=== PATIENT | male | born 1990 | race Caucasian/White ===

== ENCOUNTER 2017-06-06 21:53 | Emergency (ER) | payer MEDICAID ==
[2017-06-06 22:07] VITALS: BP 128/72; PULSE 83; RESP 18; TEMP 97.4
[2017-06-06] MEDS ORDERED: PROPARACAINE 0.5% OPHTH DROPS 15 ML BTL LEFT EYE STA (22:14)
--- NOTE | 2017-06-06 22:41 | ED ---
General Adult HPI - General Chief complaint: Eye Problems Stated complaint: FB Eye Time Seen by Provider: 06/06/17 22:03 Source: patient, RN notes reviewed Mode of arrival: ambulatory Limitations: no limitations - History of Present Illness Initial comments: Patient with 26-year-old male who presents emergency room today with a chief complaint of foreign body sensation to the right eye. He denies any specific injury or trauma. 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 Unsure something hospital he got into his eye that way. He states his vision is been normal. He denies any other complaints or associated symptoms. Patient denies any recent fever, chills, shortness of breath, chest pain, back pain, abdominal pain, nausea or vomiting, numbness or tingling, dysuria or hematuria, constipation or diarrhea, headaches or visual changes, or any other complaints. - Related Data Home Medications Medication Instructions Recorded Confirmed Albuterol Nebulized [Ventolin 2.5 mg INHALATION RT-BID PRN 07/25/14 06/06/17 Nebulized] Methylphenidate HCl 27 mg PO DAILY 04/06/16 06/06/17 [Methylphenidate ER] Previous Rx's Medication Instructions Recorded Tobramycin 0.3% Ophth Soln [Tobrex 1 - 2 drop RIGHT EYE Q4H 7 Days 06/06/17 0.3% Ophth Soln] Allergies Allergy/AdvReac Type Severity Reaction Status Date / Time No Known Allergies Allergy Verified 06/06/17 22:37 Review of Systems ROS Statement: Those systems with pertinent positive or pertinent negative responses have been documented in the HPI. ROS Other: All systems not noted in ROS Statement are negative. Past Medical History Past Medical History: Asthma History of Any Multi-Drug Resistant Organisms: MRSA Date of last positivie culture/infection: 07/25/2014 MDRO Source:: Left Ankle Additional Past Surgical History / Comment(s): tubes in ears as child Past Psychological History: No Psychological Hx Reported Smoking Status: Current every day smoker Past Alcohol Use History: Rare Past Drug Use History: None Reported General Exam - General Exam Comments Initial Comments: General: The patient is awake and alert, in no distress, and does not appear acutely ill. Eye: Pupils are equal, round and reactive to light, extra-ocular movements are intact. No nystagmus. There is normal conjunctiva bilaterally. No signs of icterus. No sign of a stye Ears, nose, mouth and throat: There are moist mucous membranes and no oral lesions. Neck: The neck is supple, there is no tenderness or JVD. Cardiovascular: There is a regular rate and rhythm. No murmur, rub or gallop is appreciated. Respiratory: Lungs are clear to auscultation, respirations are non-labored, breath sounds are equal. No wheezes, stridor, rales, or rhonchi. Musculoskeletal: Normal ROM, no tenderness. Strength 5/5. Sensation intact. Pulses equal bilaterally 2+. Neurological: A&O x 3. CN II-XII intact, There are no obvious motor or sensory deficits. Coordination appears grossly intact. Speech is normal. Skin: Skin is warm and dry and no rashes or lesions are noted. Psychiatric: Cooperative, appropriate mood & affect, normal judgment. Limitations: no limitations Course Vital Signs 06/06/17 22:04 Temperature 97.4 F L Pulse Rate 83 Respiratory 18 Rate Blood Pressure 128/72 O2 Sat by Pulse 96 Oximetry Procedures - Procedures Initial comment: Patient's right eye was anesthetized locally with proparacaine which didn't relieve his symptoms. It was stained with forcing checked with Wood's lamp also slit lamp exam revealing no sign of foreign body or other acute abnormality. Patient's lids were inverted no sign of foreign bodies. Patient' s pressure was also checked in the eye which was 19 on the right. Medical Decision Making - Medical Decision Making Patient has normal pressure here in the emergency room of the right eye. There is no sign of a abrasion or foreign body. Patient will be started on antibiotic drop advised to follow-up with aed trainer there is no improvement in the next 1-2 days. Advised return if any symptoms increase or worsen. Disposition Clinical Impression: Eye irritation Disposition: HOME SELF-CARE Condition: Good Instructions: Corneal Abrasion (ED) Additional Instructions: Please use antibiotic drops as discussed and follow-up with the aed trainer over the next 2 days if symptoms are still present. Prescriptions: Tobramycin 0.3% Ophth Soln [Tobrex 0.3% Ophth Soln] 1 - 2 drop RIGHT EYE Q4H 7 Days Referrals: Chad Castaneda DO [Primary Care Provider] - 1-2 days Gilbert Cobb MD [STAFF PHYSICIAN] - 1-2 days Time of Disposition: :40
== END 2017-06-06 22:52 | disposition home or self-care (01) ==
LOC: EC 21:53
DX: H57.8 Other specified disorders of eye and adnexa (principal); F17.200 Nicotine dependence, unspecified, uncomplicated; Z79.899 Other long term (current) drug therapy
CPT/HCPCS: 99283

== ENCOUNTER → 2020-08-03 | Outpatient (CLI) | payer OTHER | END | disposition home or self-care (01) | LOC: LABWHC1 11:22 | PROVIDERS: ATTEND Family Medicine | DX: Z20.828 Contact with and (suspected) exposure to other viral communicable diseases (principal) | CPT/HCPCS: U0003; C9803 ==

== ENCOUNTER → 2021-05-11 | Outpatient (CLI) | payer OTHER ==
--- NOTE | 2021-05-11 12:55 | XR ---
EXAMINATION TYPE: XR chest 2V DATE OF EXAM: 05/11/2021 COMPARISON: Chest x-ray 09/11/2012 HISTORY: Pneumonia, shortness of breath TECHNIQUE: Frontal and lateral views of the chest are obtained. FINDINGS: Patient is rotated toward the right. There is some bronchial wall thickening present. There is some questionable patchy density seen on the lateral exam in the super cardiac location, pleural effusion, or pneumothorax seen. The cardiac silhouette size is within normal limits. The osseous s tructures are intact. IMPRESSION: Correlate for bronchitis, reactive airways disease. Difficult to exclude pneumonia, cons ider follow-up.
== END | disposition home or self-care (01) ==
LOC: RADXRMAIN 12:07
PROVIDERS: ATTEND Family Medicine
DX: J18.9 Pneumonia, unspecified organism (principal)
CPT/HCPCS: 71046

== ENCOUNTER 2024-06-24 11:01 | Emergency (ER) | payer OTHER ==
--- NOTE | 2024-06-24 11:41 | ED ---
Recheck HPI - General Chief Complaint: Recheck/Abnormal Lab/Rx Stated Complaint: Right hand injury Time Seen by Provider: 06/24/24 11:38 Source: patient, RN notes reviewed, old records reviewed Mode of arrival: ambulatory Limitations: no limitations - History of Present Illness Initial Comments: 43-year-old male presented to ER with a chief complaint of right hand fracture. Patient states he fell while walking his dog on Monday night landing on his right wrist. Patient was seen at [facility] and diagnosed with a 5th metacarpal fracture. Patient was placed in a splint and given [place] prescription for pain control patient. Patient was referred to Dr. Pennington but states when he went to clinic today he was told they do not accept his insurance unless he was referred to by Dexter Muhammad. Patient presents to today for referral. No other injuries or complaints. Patient has [id number]. Pain is controlled with [place] prescribed by [facility]. - Related Data Home Medications Medication Instructions Recorded Confirmed Albuterol Nebulized [Ventolin 2.5 mg INHALATION RT-BID PRN 07/25/14 06/06/17 Nebulized] Methylphenidate HCl 27 mg PO DAILY 04/06/16 06/06/17 [Methylphenidate ER] Previous Rx's Medication Instructions Recorded Tobramycin 0.3% Ophth Soln [Tobrex 1 - 2 drop RIGHT EYE Q4H 7 Days ml 06/06/17 0.3% Ophth Soln] Allergies Allergy/AdvReac Type Severity Reaction Status Date / Time No Known Allergies Allergy Verified 06/24/24 11:05 Review of Systems ROS Statement: Those systems with pertinent positive or pertinent negative responses have been documented in the HPI. ROS Other: All systems not noted in ROS Statement are negative. Past Medical History Past Medical History: Asthma History of Any Multi-Drug Resistant Organisms: MRSA Date of last positivie culture/infection: 07/25/2014 MDRO Source:: Left Ankle Additional Past Surgical History / Comment(s): tubes in ears as child Past Psychological History: No Psychological Hx Reported Smoking Status: Vaper Past Alcohol Use History: Rare Past Drug Use History: None Reported General Exam Limitations: no limitations General appearance: alert, in no apparent distress Respiratory exam: Present: normal lung sounds bilaterally. Absent: respiratory distress, wheezes, rales, rhonchi, stridor Cardiovascular Exam: Present: regular rate, normal rhythm, normal heart sounds. Absent: systolic murmur, diastolic murmur, rubs, gallop, clicks Extremities exam: Present: tenderness (Tenderness and edema to right fourth and fifth metatarsal. Full range of motion of digits. Brisk cap refill. 2+ right radial pulse. Soft compartments. No anatomical snuffbox tenderness.), other (Overlying skin unremarkable. No wounds or irritation.) Neurological exam: Present: alert, oriented X3, CN II-XII intact Skin exam: Present: warm, dry, intact, normal color. Absent: rash Course Vital Signs 06/24/24 06/24/24 11:03 12:26 Temperature 98.2 F 98.4 F Pulse Rate 86 76 Respiratory 20 18 Rate Blood Pressure 138/89 136/80 O2 Sat by Pulse 99 97 Oximetry Medical Decision Making - Medical Decision Making Was pt. sent in by a medical professional or institution (, PA, AIR CARRIER INSPECTOR, urgent care, hospital, or care home...) When possible be specific @ -No Did you speak to anyone other than the patient for history (EMS, parent, family, police, friend...)? What history was obtained from this source @ -No Did you review nursing and triage notes (agree or disagree)? Why? @ -I reviewed and agree with nursing and triage notes Were old charts reviewed (outside hosp., previous admission, EMS record, old EKG, old radiological studies, urgent care reports/EKG's, care home records)? Report findings @ -I reviewed right hand x-ray from [facility] from 06-22-2024. Hand x-ray significant for right fifth metacarpal fracture. Differential Diagnosis (chest pain, altered mental status, abdominal pain women, abdominal pain men, vaginal bleeding, weakness, fever, dyspnea, syncope, headache, dizziness, GI bleed, back pain, seizure, CVA, palpatations, mental health, musculoskeletal)? @ -Differential Musculoskeletal: Muscular strain, contusion, ligament sprain, fracture, arthritis, septic arthritis, bursitis, cellulitis, muscle spasm, nerve compression, DVT, arterial occlusion, herpes zoster, electrolyte abnormality, tumor.... This is not meant to be in all inclusive list EKG interpreted by me (3pts min.). @ -None done X-rays interpreted by me (1pt min.). @ -None done CT interpreted by me (1pt min.). @ -None done U/S interpreted by me (1pt. min.). @ -None done What testing was considered but not performed or refused? (CT, X-rays, U/S, labs)? Why? @ -None What meds were considered but not given or refused? Why? @ -None Did you discuss the management of the patient with other professionals (professionals i.e. , PA, AIR CARRIER INSPECTOR, lab, RT, psych nurse, social worker assistant, drying rack changer, teacher, senior officer, case picker)? Give summary @ -No Was smoking cessation discussed for >3mins.? @ -No Was critical care preformed (if so, how long)? @ -No Were there social determinants of health that impacted care today? How? (Homelessness, low income, unemployed, alcoholism, drug addiction, transportation, low edu. Level, literacy, decrease access to med. care, senior care, rehab)? @ -No Was there de-escalation of care discussed even if they declined (Discuss DNR or withdrawal of care, Hospice)? DNR status @ -No What co-morbidities impacted this encounter? (DM, HTN, Smoking, COPD, CAD, Cancer, CVA, ARF, Chemo, Hep., AIDS, mental health diagnosis, sleep apnea, morbid obesity)? @ -None Was patient admitted / discharged? Hospital course, mention meds given and route, prescriptions, significant lab abnormalities, going to OR and other pertinent info. @ -Discharged. 33 year old male presenting to the ER with a chief complaint of hand fracture. History and physical exam completed. Vitals within normal limits. Patient in no signs of acute distress. Right hand is in a splint. Right upper extremity neurovascular intact. Upon removal of splint skin overlying skin is unremarkable without evidence of infection. There is swelling and tenderness over fourth and fifth metacarpals. X-rays from [facility] reviewed and significant for 5th metcarpal fracture. Patient given referral to orthopedics. He reports he has an appointment at 2 PM this afternoon. Denies any current pain. No other complaints. Splint replaced prior to discharge. Patient discharged stable condition. Patient verbally expressed understanding agree with care plan. Case discussed with ED attending Dr. Tatum. Undiagnosed new problem with uncertain prognosis? @ -No Drug Therapy requiring intensive monitoring for toxicity (Heparin, Nitro, Insulin, Cardizem)? @ -No Were any procedures done? @ -No Diagnosis/symptom? @ -Fifth metacarpal fracture Acute, or Chronic, or Acute on Chronic? @ -Acute Uncomplicated (without systemic symptoms) or Complicated (systemic symptoms)? @ -Uncomplicated Side effects of treatment? @ -No Exacerbation, Progression, or Severe Exacerbation? @ -No Poses a threat to life or bodily function? How? (Chest pain, [place], NC, pneumonia, PE, COPD, DKA, ARF, appy, cholecystitis, CVA, Diverticulitis, Homicidal, Suicidal, threat to staff... and all critical care pts) @ -No - Radiology Data Radiology results: image reviewed Disposition Clinical Impression: Fracture of fifth metacarpal bone Disposition: HOME SELF-CARE Condition: Stable Additional Instructions: Follow-up with orthopedics as scheduled at 2 PM. Return to the ER for any new or worsening concerns. Is patient prescribed a controlled substance at d/c from ED?: No Referrals: Chad Castaneda DO [Primary Care Provider] - 1-2 days Neha Pennington DO [Doctor of Osteopathic Medicine] - 1-2 days Time of Disposition: 12:12
[2024-06-24 12:27] VITALS: BP 136/80; PULSE 76; RESP 18; TEMP 98.4
== END 2024-06-24 12:47 | disposition home or self-care (01) ==
LOC: EC 11:01
CPT/HCPCS: 99283